=== PATIENT | female | born 1970 | race African-American/Black ===

== ENCOUNTER 2016-07-19 22:04 | Emergency (ER) | payer OTHER ==
[~2016-07-19] VITALS: Ht 154.9 cm; Wt 108.4 kg
[~2016-07-19 22:04] MED LIST: ASACOL HD800 MG PO; COLACE100 MG PO; DESYREL; FERRO-TIME325 MG PO; FOLIC ACID1 MG PO; HYDROCODON-ACE1 EAC7 PO; HYDROCODON-ACE1 EAC8 PO; HYDROCODONE-AP1 EAC6 PO; IBUPROFEN200 M2 PO; LEVAQUIN 500 M500 MG PO; LEXAPRO 10 MG T10 MG PO; LIALDA1.2 GM PO; LIDODERM 5%1 PATCH TOP; MEDROL4 MG PO; METHOCARBAMOL750 MG PO; MOBIC7.5 MG PO; MOM PO; MULTIVITAMINS1 EAC7 PO; NEURONTIN 300300 M1 PO; NEURONTIN 300M300 M2 PO; NORCO 10-325 T1 EACH PO; NORCO 5-325 TA1 EACH PO; OSELB75 PO; PERCOCET 5-3251 EACH PO; PROTONIX40 MG PO; TRAMADOL 50 MG50 MG PO; TRAMADOL HCL E200 MG PO; ULTRAM 50MG TAB50 MG PO; ULTRAM ER100 MG PO; ULTRAM ER200 MG PO; VISTARIL 25 MG25 M1 PO; VITAMIN D10000 UNIT PO; ZOFRAN ODT4 MG PO; ZPAK PO
== END 2016-07-19 22:55 | disposition home or self-care (01) ==
LOC: ER 22:04
DX: T42.6X5A Adverse effect of other antiepileptic and sedative-hypnotic drugs, initial encounter (principal); Z98.890 Other specified postprocedural states; Z88.2 Allergy status to sulfonamides; Z88.6 Allergy status to analgesic agent; Y92.89 Other specified places as the place of occurrence of the external cause

== ENCOUNTER → 2016-08-07 | Outpatient (CLI) | payer OTHER | LOC: RAD 08:46 | DX: Z12.31 Encounter for screening mammogram for malignant neoplasm of breast (principal) ==

== ENCOUNTER → 2017-11-29 | Outpatient (CLI) | payer OTHER ==
[~2017-11-29] MED LIST changes: +NORTRIPTYLINE H10 M1 PO; +PREDNISONE 20 M20 MG PO; +PRILOSEC OTC20 MG PO
== END ==
LOC: RAD 15:25
DX: Z12.31 Encounter for screening mammogram for malignant neoplasm of breast (principal)

== ENCOUNTER 2018-03-20 20:38 | Emergency (ER) | payer OTHER ==
[~2018-03-20] VITALS: Ht 154.9 cm; Wt 108.9 kg
[2018-03-20 21:21] LABS: AMP/METHAMP Negative (Negative); BARBITURATES Negative (Negative); BENZODIAZEPINES Negative (Negative); COCAINE Negative (Negative); METHADONE Negative (Negative); OPIATES POSITIVE (Negative); PCP Negative (Negative)
[2018-03-20 22:17] LABS: ABSOLUTE NEUTROPHILS 5.2 thou/uL (1.4-8.2); BASOPHILS 1.2 % (0.0-2.0); EOSINOPHILS 3.2 % (0.0-3.0); HEMATOCRIT 36.6 % (37.0-47.0); LYMPHOCYTES 31.7 % (24.0-44.0); MCH 27.8 pg (26.0-34.0); MCHC 32.8 g/dL (28.0-37.0); MCV 84.8 fL (80.0-100.0); PLATELET COUNT 306 thou/uL (150-400); POLYS 56.9 % (36.0-66.0); RBC 4.32 mil/uL (4.20-5.00); RDW 13.2 % (10.5-14.5); WBC 9.2 thou/uL (4.0-11.0)
[2018-03-20 22:23] LABS: ANION GAP 8 mmol/L (7-16); BUN 10 mg/dL (7-18); CALCIUM 8.9 mg/dL (8.5-10.1); CHLORIDE 102 mmol/L (98-107); CO2 28 mmol/L (21-32); CREATININE 0.9 mg/dL (0.6-1.0); GLUCOSE 111 mg/dL (74-106); POTASSIUM 3.6 mmol/L (3.5-5.1); SODIUM 138 mmol/L (136-145)
[2018-03-20] MEDS ORDERED: NORFLEX100 MG PO (22:31)
[2018-03-20] MEDS ORDERED: NAPROSYN500 MG PO (22:31)
[2018-03-20 22:32] LABS: ALBUMIN 3.6 g/dL (3.4-5.0); MAGNESIUM 1.8 mg/dL (1.8-2.4); SGOT 16 U/L (15-37); SGPT 17 U/L (30-65); TOTAL BILIRUBIN 0.2 mg/dL (<0.1-1.0); TOTAL PROTEIN 7.6 g/dL (6.4-8.2); TROPONIN-I <0.06 ng/mL (<0.06)
[2018-03-20 22:58] VITALS: BP 145/86
--- NOTE | 2018-03-21 08:20 | EKG ---
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1970 Requested By: Denis Dang Order Number: [id number] MD: Desean Pradhan Measurements Intervals Mittie Rate: 100 P: 55 IA: 169 QRS: 26 QRSD: 92 T: 30 QT: 375 QTc: 484 Interpretive Statements Sinus tachycardia Nonspecific ST and T wave abnormality Compared to ECG 02/06/2010 09:17:[address] and T wave abnormality is new Electronically Signed On 03-21-2018 8:20:26 ASSOCIATE DIRECTOR FINANCIAL AID by Desean Pradhan [email or web address] <ELECTRONICALLY SIGNED> By: Desean Pradhan MD, [facility] 03/21/18 0820 D: 02/2108 08 Desean Pradhan MD, FACC /EPI
== END 2018-03-20 22:58 | disposition home or self-care (01) ==
LOC: ER 20:38
PROVIDERS: Emergency Medicine
DX: M43.6 Torticollis (principal); M25.511 Pain in right shoulder; R06.02 Shortness of breath; Z88.1 Allergy status to other antibiotic agents; Z88.2 Allergy status to sulfonamides; Z88.8 Allergy status to other drugs, medicaments and biological substances; Z86.2 Personal history of diseases of the blood and blood-forming organs and certain disorders involving the immune mechanism; Z98.890 Other specified postprocedural states

== ENCOUNTER → 2018-08-06 | Outpatient (CLI) | payer OTHER ==
[~2018-08-06] MED LIST changes: +NAPROSYN500 MG PO; +NORFLEX100 MG PO
== END ==
LOC: CAT 08:14
DX: M19.011 Primary osteoarthritis, right shoulder (principal); M48.02 Spinal stenosis, cervical region; M47.812 Spondylosis without myelopathy or radiculopathy, cervical region

== ENCOUNTER → 2021-03-16 | Outpatient (CLI) | payer OTHER ==
[~2021-03-16] MED LIST changes: +CIMETIDINE800 MG PO; +CYMBALTA60 MG PO; +PROAIR HFA8.5 GM INH; +TIZANIDINE HCL4 M1 PO
== END ==
LOC: SJCVCIMAG 07:18
PROVIDERS: ATTEND Internal Medicine
DX: I08.1 Rheumatic disorders of both mitral and tricuspid valves (principal); I25.10 Atherosclerotic heart disease of native coronary artery without angina pectoris; I10 Essential (primary) hypertension; R06.02 Shortness of breath; R07.9 Chest pain, unspecified; R94.31 Abnormal electrocardiogram [ECG] [EKG]; E78.5 Hyperlipidemia, unspecified; Z88.2 Allergy status to sulfonamides; Z88.1 Allergy status to other antibiotic agents; Z88.8 Allergy status to other drugs, medicaments and biological substances; Z79.899 Other long term (current) drug therapy; Z82.49 Family history of ischemic heart disease and other diseases of the circulatory system

== ENCOUNTER → 2021-03-22 | Outpatient (CLI) | payer OTHER ==
[~2021-03-22] VITALS: Ht 154.9 cm; Wt 114.1 kg
[2021-03-22 10:05] VITALS: BP 140/106
--- NOTE | 2021-03-22 10:26 | EKG ---
[place] [address] [facility] [place] [address] ELECTROCARDIOGRAM REPORT Name: NIXONMARY Room #: MANDY Goldbreg#: [id number] Admission: 03/22/21 Attend Phys: Sandeep Keen Discharge: Date of : 66 Report #: [id number] [facility] Test Date: 2021-03-22 Test Time: 10:04:20 Pat Name: [facility] Department: Room: Gender: F Senior Qc Technician: ANNITA : 1970 Requested By: Sandeep Keen Order Number: [id number] MD: Justice Betts Measurements Intervals Sherman Rate: 95 P: 74 NV: 200 QRS: 22 QRSD: 82 T: 31 QT: 403 QTc: 507 Interpretive Statements Sinus rhythm Borderline prolonged NV interval Borderline T abnormalities, anterior leads Borderline prolonged QT interval Compared to ECG 03/20/2018 21:09:55 T-wave abnormality now present Sinus tachycardia no longer present ST (T wave) deviation no longer present Electronically Signed On 03-22-2021 10:25:54 DRIVING INSTRUCTOR by Justice Betts [email or web address] <ELECTRONICALLY SIGNED> By: Justice Betts MD, [facility] 03/22/21 1025 1004 1004 Justice Betts MD, [facility] /EPI
[2021-03-22 10:29] LABS: HEMATOCRIT 34.6 % (37.0-47.0); HEMOGLOBIN 11.1 gm/dL (12.0-15.0); MCH 27.7 pg (26.0-34.0); MCV 86.6 fL (80.0-100.0); RBC 3.99 mil/uL (4.20-5.00); RDW 14.6 % (10.5-14.5)
[2021-03-22 10:37] LABS: POTASSIUM 3.8 mmol/L (3.5-5.1)
--- NOTE | 2021-04-04 16:58 | CATHLAB ---
[facility] [place] [address] INVASIVE PROCEDURE REPORT Name: MARY NIXON Room #: REG MICHAEL Ashlyn#: [id number] Admission: 03/22/21 Attend Phys: Sandeep Keen Discharge: Date of : 66 Report #: [id number] THIS REPORT FOR: cc: Eloy Pino MD, Sequita MD Lammoglia, Francisco J. MD ~ APPROVED REPORT Study performed: 03/22/2021 10:50:14 Patient Details Patient Status: Out-Patient Room #: The patient is a 50 year-old female Event Personnel Sandeep Keen Traffic Expert, Blake Pedraza RN RN, Jojo White RN RN, Ana Camilo RTR Lino, Kaci Farley Monitor Procedures Performed Art Access - R femoral artery* Left Heart Cath w/or w/o Coronaries [id number] [facility] [address] Initial Mod Sed Same Phys/QHP Gr 545840 76785 Mod Sed Same Phys/QHP Ea 901000 Hemostasis w/ Mynx, supervision of conscious sedation Indication Positive stress test, Chest pain Procedure Narrative The Right Groin^ was infiltrated with 1% Lidocaine subcutaneous anesthesia. A PINNACLE 4FR Sheath #[id number] sheath was inserted into the RFA 4F^. Coronary angiography was performed using coronary diagnostic catheters. The right coronary system was accessed and visualized with a JR4 catheter. The left coronary system was accessed and visualized with a JL4 catheter. The left ventricle was accessed and visualized with a STR PIG catheter. Closure device was deployed with a Fr PINNACLE 6FR Sheath #[id number]. There was no hematoma. Intraoperative Conscious Sedation Sedation start time: 1110 Case end Time: 1145 Versed 4 mg [facility] [address] [address] INVASIVE PROCEDURE REPORT Name: MARY NIXON Room #: [facility]#: [id number] Admission: 03/22/21 Attend Phys: Sandeep Saez Discharge: Date of : 66 Report #: [id number] Fluoro Time: 3.30 minutes Dose: DAP 6991.90 cGycm2 746 mGy Contrast Type and Amount: Omnipaque 45 ml Coronary Angiography The patient's coronary anatomy is right dominant. Diagnostic Cath Left Main Moderate caliber vessel of normal origin giving rise to the left and descending left circumflex and ramus intermedius free of high-grade disease LAD Moderate caliber type III vessel which courses in the anterior interventricular sulcus giving rise to septal diagonal branches. There is no significant plaquing or flow-limiting lesions noted as it courses towards the apex Hoxsie apex and terminates as a bifurcating vessel Diagonal 1 Small caliber vessel without high-grade lesion Circumflex Small caliber vessel coursing in the AV groove giving rise to a marginal branch free of high-grade disease OM1 Small caliber vessel arising the proximal third of the circumflex proper going through the lateral aspect of the heart free of high-grade disease OM2 Small caliber vessel coursing the posterior lateral aspect left ventricle without significant stenosis Right Coronary Moderate caliber dominant vessel giving rise to the right atrial and ventricular branches as it courses to the acute margin. It then continues posteriorly crux of the artery gives rise to small posterior descending artery and terminates is a posterior lateral wall which is small in size R PDA Small caliber vessel without high-grade lesions noted although tortuous in its course in the posterior interventricular septum Ramus Moderate caliber vessel coursing on the lateral aspect of the heart without significant high-grade lesions. It does give rise to several smaller branches in its course Left Ventriculography Left Ventriculography was not performed. Hemodynamics The aortic pressure is 160/93 mmHg with a mean of 118 mmHg. The left ventricular pressure is 168/16 mmHg with a mean of mmHg. The left ventricular end diastolic pressure is 29 mmHg. Conclusion [facility] [address] [place] [address] INVASIVE PROCEDURE REPORT Name: HUSSAINMARY Room #: [facility]#: [id number] Admission: 03/22/21 Attend Phys: Sandeep Saez Discharge: Date of : 66 Report #: [id number] 1. Essentially normal coronary arteries 2. Normal hemodynamics Recommendations Cardiac Risk Reduction Program Medical Therapy <ELECTRONICALLY SIGNED> By: Sandeep Keen MD 04/04/211657 57 57 Sandeep Keen MD /INF
== END ==
LOC: CATH 09:31
PROVIDERS: ATTEND Internal Medicine
DX: R94.39 Abnormal result of other cardiovascular function study (principal); R07.9 Chest pain, unspecified; I25.10 Atherosclerotic heart disease of native coronary artery without angina pectoris; E78.5 Hyperlipidemia, unspecified; M81.0 Age-related osteoporosis without current pathological fracture; Z79.899 Other long term (current) drug therapy; Z98.890 Other specified postprocedural states